=== PATIENT | male | born 1955 | race American Indian/Alaskan Native ===

== ENCOUNTER 2019-09-28 06:08 | Day surgery (SDC) | payer OTHER ==
[~2019-09-28 06:08] MED LIST: SODIUM CHLORIDE 0.9% 1000 ML 1,000 ML IV SCH
[2019-09-28] MEDS ORDERED: LIDOCAINE MPF (2%) 20 MG/1 ML VIAL 5 ML ONE (07:30)
[2019-09-28] MEDS ORDERED: WATER FOR IRRIG STERILE 250 ML BOTTLE IR ONE (07:37)
--- NOTE | 2019-09-28 07:54 | Anesthesia Consultation ---
Anesthesia Consult and Med Hx Date of service: 09/28/19 - Airway Anesthetic Teeth Evaluation: Dentures, Partials ROM Head & Neck: Adequate Mental/Hyoid Distance: Inadequate Mallampati Class: Class II Intubation Access Assessment: Probably Good - Pulmonary Exam CTA: Yes - Cardiac Exam Cardiac Exam: RRR - Pre-Operative Health Status ASA Pre-Surgery Classification: ASA3 Proposed Anesthetic Plan: MAC - Pulmonary Hx Asthma: Yes Hx Sleep Apnea: Yes (Uses Cpap machine ) - Cardiovascular System Hx Hypertension: Yes - Central Nervous System Hx Back Pain: Yes Hx Psychiatric Problems: Yes (Anxiety and Depression) - Gastrointestinal Hx Gastroesophageal Reflux Disease: Yes - Endocrine Hx Renal Disease: No Hx Non-Insulin Dependent Diabetes: Yes - Other Systems Hx Alcohol Use: No Hx Substance Use: No Hx Obesity: Yes (BMI- 44.2) - Additional Comments Anesthesia Medical History Comments: Patient denies previous anesthesia complications
--- NOTE | 2019-09-28 07:55 | Anesthesia Day of Surgery ---
Anesthesia Day of Surgery - Day of Surgery Patient Examined: Yes Patient H&P Reviewed: Yes Patient is NPO: Yes
[2019-09-28] MEDS ORDERED: fentaNYL 100 MCG/2 ML INJ ONE (07:59)
[2019-09-28] MEDS ORDERED: PROPOFOL 200 MG/20 ML VIAL IV ONE ×2 (08:00)
--- NOTE | 2019-09-28 09:07 | Operative Report ---
PROCEDURE: Esophagogastroduodenoscopy with biopsy. INDICATIONS: A 64-year-old -[place] gentleman with an underlying history of hypertension, who has been having GERD symptoms. EGD was done to assess for any significant upper GI pathology. DESCRIPTION OF PROCEDURE: Procedure was done after getting informed consent with MAC anesthesia. Instrument was passed through the hypopharynx into the esophagus, which showed [id number] erosive esophagitis. Biopsy was done from the distal esophagus as well as from the midesophagus. The stomach showed antral erosion. No ulcers were noted in the straight or the retroverted view. The pylorus was patent. The duodenum in the first and second portion appeared normal. Biopsy was done from the gastric antrum, the angular incisura and gastric body to rule out for H. pylori and atrophic gastritis. There was minimal bleeding associated with the procedure. No complications associated with the procedure. ASSESSMENT: Gastroesophageal reflux disease symptoms, mild to moderate erosive esophagitis, gastric erosion, gastritis. PLAN: To treat the patient with PPI, have the patient to avoid aspirin and aspirin-related products and anticoagulants for the next few days and also do a colonoscopy as part of colon polyp screening. The patient will be advised to follow up in the office in 1-2 weeks' time. The procedure was done in the GI lab with assistance of the GI lab team, which included JOSELIN Landis and Vanda haile and with the assistance of anesthesia. JOB# [id number] KG/GAURAV
--- NOTE | 2019-09-28 09:08 | Procedure Note ---
Date of procedure: 09/28/19 Pre-op diagnosis: GERD/Colon Polyp Screening Post-op diagnosis: other (Mild to Moderate Erosive Esophagitis/ Gastric Erosion and Gastritis/ No colon Polyps noted/ Few Left colon Diverticuli/Minor,Internal Hemorrhoid) Procedure: EGD with Biopsy/ Colonoscopy [place] [facility] [place]: HAYLEE ROSALES Estimated blood loss: minimal Pathology: list Specimen disposition: to lab Condition: stable Disposition: same day (Treat with PPI, encourage fiber intake. Avoid aspirin and anSAID and anticoagulants for 4 days; otherwise resume home medication. Follow up in 1 to 2 weeks ([phone]).)
[2019-09-28 09:30] VITALS: BP 152/95
--- NOTE | 2019-09-28 09:35 | Operative Report ---
PROCEDURE: Colonoscopy. INDICATIONS: A 64-year-old -[place] gentleman with an underlying history of hypertension. He had an EGD done prior to the colonoscopy, which showed presence of [id number] erosive esophagitis and gastric erosion. DESCRIPTION OF PROCEDURE: Colonoscopy was done after getting informed consent with MAC. The procedure was done with MAC anesthesia. Initial rectal exam was unremarkable. Instrument was passed through the rectum onto the cecum, which was identified with ileocecal valve and the appendiceal orifice. Visualization was fair to slightly poor in the proximal colon. The mucosa was washed with copious amounts of water. The cecum, ascending colon, transverse colon showed normal mucosa. There were a few left colon diverticula noted and the rectum showed minor internal hemorrhoid on the retroverted view. There were no biopsies done and no bleeding associated with the colonoscopy. ASSESSMENT: Colon polyp screening, no colon polyps noted. Few left colon diverticula, minor internal hemorrhoid. There was no bleeding associated with the colonoscopy. PLAN: Plan is to treat the patient, encouraged the patient to take fiber supplements. Also, treat the patient with PPI because of the EGD findings of gastric erosion and gastritis. The patient will be asked to avoid aspirin and aspirin-related products for the next few days and to follow up in the office in 1-2 weeks' time. The patient besides avoiding aspirin and aspirin-related products for about 4 days, the patient may resume home medication. The procedure was done in the GI lab with assistance of the GI lab team, which included JOSELIN Landis and Vanda haile and with assistance of anesthesia. JOB# [id number] KG/GAURAV
--- NOTE | 2019-09-28 11:33 | Post Anesthesia Evaluation ---
- Post Anesthesia Evaluation Patient Participated: Yes Airway Patent: Yes Stable Respiratory Function: Yes Nausea/Vomiting: No Temp > 96.8F: Yes Pain Manageable: Yes Adequeate Hydration: Yes Anesthesia Complications: No Block Receding Appropriately: Not Applicable Patient on Ventilator: No
== END 2019-09-28 06:09 | disposition home or self-care (01) ==
LOC: GIO 06:08
DX: Z12.11 Encounter for screening for malignant neoplasm of colon (principal); K21.0 Gastro-esophageal reflux disease with esophagitis; K57.30 Diverticulosis of large intestine without perforation or abscess without bleeding; K64.8 Other hemorrhoids; I10 Essential (primary) hypertension; K29.50 Unspecified chronic gastritis without bleeding; G47.30 Sleep apnea, unspecified; J45.909 Unspecified asthma, uncomplicated; E66.9 Obesity, unspecified; M19.90 Unspecified osteoarthritis, unspecified site; E11.9 Type 2 diabetes mellitus without complications; F32.9 Major depressive disorder, single episode, unspecified; F41.9 Anxiety disorder, unspecified; Z79.899 Other long term (current) drug therapy; Z68.41 Body mass index [BMI] 40.0-44.9, adult
CPT/HCPCS: 43239; 45378; 82962; 88305; 88342; J2704; J3010; J7030